=== PATIENT | male | born 1960 | race Caucasian/White ===

== ENCOUNTER 2016-05-19 22:48 | Emergency (ER) | payer OTHER ==
[~2016-05-19] VITALS: Ht 185.4 cm; Wt 89.7 kg
[~2016-05-19 22:48] MED LIST: ASPIR-LOW81 MG PO; BENTYL10 MG PO; CEFDINIR300 MG PO; CIPRO500 MG PO; EXCEDRIN EXT1 TABLET; EXCEDRIN1 TABLET PO; Flexeril PO; KADIAN30 MG PO; KENALOG,ARISTOC80 GM TP; LISINOPRIL40 MG PO; LOMOTIL TABLET1 EACH PO; METAMUCIL POWD798 GM PO; MORPHINE SULFAT30 M5 PO; MS CONTIN,ORAMO30 M1 PO; Maxipime IV; NOHOMEMEDS; PERCOCET 10/1 TABLET PO; Percocet 10/325,Endo PO; VANCOMYCIN100 MG/M2 IV; VIGAMOX 0.60 DROP/3 RIGHT EYE; ZOFRAN ODT4 MG PO
[2016-05-19] MEDS ORDERED: MORPHINE SULFAT30 M2 PO (23:03)
[2016-05-19] MEDS ORDERED: KADIAN30 MG PO (23:17)
[2016-05-19 23:37] VITALS: BP 150/109
== END 2016-05-19 23:37 | disposition home or self-care (01) ==
LOC: EME 22:48 → EXP 22:48
DX: T40.2X6A Underdosing of other opioids, initial encounter (principal); R11.0 Nausea; Z91.138 Patient's unintentional underdosing of medication regimen for other reason; G89.29 Other chronic pain; Z79.891 Long term (current) use of opiate analgesic
CPT/HCPCS: 99281; 99284

== ENCOUNTER 2017-02-06 16:35 | Emergency (ER) | payer OTHER ==
[~2017-02-06] VITALS: Ht 182.9 cm; Wt 91.3 kg
[~2017-02-06 16:35] MED LIST changes: +MORPHINE SULFAT30 M2 PO
[2017-02-06 18:39] VITALS: BP 169/115
== END 2017-02-06 18:41 | disposition left against medical advice (07) ==
LOC: EME 16:35
DX: S51.812A Laceration without foreign body of left forearm, initial encounter (principal); Y00.XXXA Assault by blunt object, initial encounter; Y07.9 Unspecified perpetrator of maltreatment and neglect; B19.20 Unspecified viral hepatitis C without hepatic coma; G89.29 Other chronic pain; M54.9 Dorsalgia, unspecified; F32.9 Major depressive disorder, single episode, unspecified; F17.200 Nicotine dependence, unspecified, uncomplicated; Z87.442 Personal history of urinary calculi
CPT/HCPCS: 99281; 99284

== ENCOUNTER 2017-02-07 11:15 | Emergency (ER) | payer OTHER ==
[~2017-02-07] VITALS: Ht 185.4 cm; Wt 90.9 kg
[2017-02-07 11:18] VITALS: BP 141/94
== END 2017-02-07 13:42 | disposition left against medical advice (07) ==
LOC: EME 11:15
DX: S51.812A Laceration without foreign body of left forearm, initial encounter (principal); X99.9XXA Assault by unspecified sharp object, initial encounter; Z79.891 Long term (current) use of opiate analgesic; I10 Essential (primary) hypertension; F17.200 Nicotine dependence, unspecified, uncomplicated; Z53.20 Procedure and treatment not carried out because of patient's decision for unspecified reasons
CPT/HCPCS: 99281; 99284; J1885

== ENCOUNTER 2017-03-30 10:53 | Emergency (ER) | payer OTHER ==
[~2017-03-30] VITALS: Ht 185.4 cm; Wt 94.3 kg
[2017-03-30 12:37] LABS: BASOPHIL (%) 0.8 % (0-1); BASOPHIL COUNT 0.1 K/uL (0-0.1); EOSINOPHIL COUNT 0.5 K/uL (0-0.3); HEMATOCRIT 44.6 % (38.0-50.0); HEMOGLOBIN 15.4 G/DL (12.5-16.6); IMMATURE GRANULOCYTE (%) 0.4 % (0.0-0.7); LYMPHOCYTE (%) 34.5 % (15-42); LYMPHOCYTE COUNT 2.5 K/uL (1.0-2.8); MCH 33.9 PG (29.0-34.0); MCHC 34.5 G/DL (30.0-36.0); MCV 98.2 FL (86-99); MONOCYTE (%) 7.4 % (3-12); MONOCYTE COUNT 0.5 K/uL (0-0.8); NEUTROPHIL (%) 49.9 % (45-76); NEUTROPHIL COUNT 3.6 K/uL (1.8-6.4); PLATELET COUNT 276 K/uL (156-360); RBC DIS.WIDTH-SD 43.9 % (39-53); RED BLOOD COUNT 4.54 M/uL (4.00-5.50); WHITE BLOOD COUNT 7.1 K/uL (4.1-10.2)
[2017-03-30 12:47] LABS: ALBUMIN 3.7 g/dL (3.2-4.8); CHLORIDE 105 mEq/L (99-109); POTASSIUM 4.3 mEq/L (3.7-5.4); SODIUM 138 mEq/L (136-147)
[2017-03-30 12:49] LABS: GLUCOSE 103 mg/dL (70-99); TOTAL PROTEIN 6.8 g/dL (6.4-8.3)
[2017-03-30 12:51] LABS: TOTAL BILIRUBIN 0.6 mg/dL (0.0-1.0)
[2017-03-30 12:53] LABS: ALKALINE PHOSPHATASE 68 IU/L (3-129); CREATININE 0.9 mg/dL (0.6-1.3); GFR ESTIMATE (CALCULATED) > 59 mL/min/ (58.99-99999)
[2017-03-30 12:54] LABS: UREA NITROGEN (BUN) 20 mg/dL (9-23)
[2017-03-30 12:55] LABS: AST (GOT) 54 IU/L (2-34)
[2017-03-30 12:56] LABS: ALT (GPT) 70 IU/L (3-49)
[2017-03-30] MEDS ORDERED: PREDNISONE20 MG PO (14:51)
[2017-03-30] MEDS ORDERED: PEPCID40 MG PO (14:51)
[2017-03-30 15:17] VITALS: BP 183/99
== END 2017-03-30 15:19 | disposition home or self-care (01) ==
LOC: EME 10:53
PROVIDERS: Physician Assistant
DX: L25.9 Unspecified contact dermatitis, unspecified cause (principal)
CPT/HCPCS: 70487; 80053; 85025; 99281; 99285; J2930; J7120

== ENCOUNTER 2017-08-30 07:45 | Emergency (ER) | payer OTHER ==
[~2017-08-30] VITALS: Ht 185.4 cm; Wt 93.8 kg
[~2017-08-30 07:45] MED LIST changes: +PEPCID40 MG PO; +PREDNISONE20 MG PO
[2017-08-30] MEDS ORDERED: MEDROL DOSEPAK4 MG PO (08:16)
[2017-08-30 08:45] VITALS: BP 168/103
== END 2017-08-30 08:45 | disposition home or self-care (01) ==
LOC: EME 07:45
DX: L30.9 Dermatitis, unspecified (principal); G89.29 Other chronic pain; Z79.891 Long term (current) use of opiate analgesic; F17.200 Nicotine dependence, unspecified, uncomplicated
CPT/HCPCS: 99281; 99283; J7512

== ENCOUNTER 2017-09-09 10:45 | Emergency (ER) | payer OTHER ==
[~2017-09-09] VITALS: Ht 185.4 cm; Wt 91.7 kg
[~2017-09-09 10:45] MED LIST changes: +MEDROL DOSEPAK4 MG PO
[2017-09-09] MEDS ORDERED: PREDNISONE20 MG PO (11:42)
[2017-09-09 11:47] VITALS: BP 151/94
[2017-09-09 11:53] LABS: HEMATOCRIT 38.8 % (38.0-50.0); HEMOGLOBIN 13.4 G/DL (12.5-16.6); MCH 34.2 PG (29.0-34.0); MCHC 34.5 G/DL (30.0-36.0); PLATELET COUNT 289 K/uL (156-360); RBC DIS.WIDTH-CV 12.5 % (11.8-14.6); RBC DIS.WIDTH-SD 45.3 % (39-53); RED BLOOD COUNT 3.92 M/uL (4.00-5.50); WHITE BLOOD COUNT 8.5 K/uL (4.1-10.2)
[2017-09-09 11:59] LABS: ALBUMIN 3.9 g/dL (3.2-4.8); CHLORIDE 104 mEq/L (99-109); POTASSIUM 4.2 mEq/L (3.7-5.4); PTT 32.5 SEC (25-37); SODIUM 139 mEq/L (136-147)
[2017-09-09 12:01] LABS: GLUCOSE 124 mg/dL (70-99)
[2017-09-09 12:03] LABS: TOTAL BILIRUBIN 0.5 mg/dL (0.0-1.0)
[2017-09-09 12:05] LABS: ALKALINE PHOSPHATASE 84 IU/L (3-129); CREATININE 0.9 mg/dL (0.6-1.3); GFR ESTIMATE (CALCULATED) > 59 mL/min/ (58.99-99999)
[2017-09-09 12:06] LABS: UREA NITROGEN (BUN) 19 mg/dL (9-23)
[2017-09-09 12:07] LABS: AST (GOT) 105 IU/L (2-34)
[2017-09-09 12:08] LABS: ALT (GPT) 134 IU/L (3-49)
== END 2017-09-09 11:48 | disposition left against medical advice (07) ==
LOC: EME 10:45
PROVIDERS: Nurse Practitioner Family
DX: L29.9 Pruritus, unspecified (principal); L30.9 Dermatitis, unspecified; E80.1 Porphyria cutanea tarda; K76.9 Liver disease, unspecified; F17.210 Nicotine dependence, cigarettes, uncomplicated; Z53.20 Procedure and treatment not carried out because of patient's decision for unspecified reasons
CPT/HCPCS: 80053; 85027; 85610; 85730; 99281; 99284